=== PATIENT | female | born 1975 | race Caucasian/White ===

== ENCOUNTER 2017-04-10 13:44 | Emergency (ER) | payer MEDICAID ==
[~2017-04-10] VITALS: Ht 152.4 cm; Wt 112.5 kg
[2017-04-10 13:58] VITALS: Ht 152.4 cm; Wt 112.5 kg
--- NOTE | 2017-04-10 15:48 | ERD ---
ER Documentation Chief Complaint Date/Time DATE: 04/10/17 TIME: 15:47 Chief Complaint 4 weeks , vag bleed today denies pain HPI This 41-year-old female presents to the emergency department today complaining of vaginal bleeding. States that she went to the bathroom this morning when she went to wipe there was dark color clot. States she is approximately 4 weeks . States she goes to her eyes and her health care center. States that she had an ultrasound last Monday and told it was told everything was normal. Denies any abdominal pain, fevers or chills, nausea vomiting or diarrhea ROS All systems reviewed and are negative except as per history of present illness. Medications Home Meds Active Scripts Acetaminophen* (Tylophen*) 500 Mg Capsule, 1 CAP PO Q6H Y for PAIN AND OR ELEVATED TEMP, #30 CAP Prov:GAL FREEMAN PA-C 04/10/17 Allergies Allergies: Coded Allergies: No Known Allergy (Unverified , 04/10/17) PMhx/Soc Hx Alcohol Use: No Hx Substance Use: No Hx Tobacco Use: No Physical Exam Vitals Vital Signs Date Time Temp Pulse Resp B/P Pulse Ox O2 Delivery O2 Flow Rate FiO2 04/10/17 18:22 60 16 117/65 99 Room Air 04/10/17 13:58 98.7 68 20 121/65 98 Physical Exam Const: Obese, no acute distress Head: Atraumatic Eyes: Normal Conjunctiva ENT: Normal External Ears, Nose and Mouth. Neck: Full range of motion..~ No meningismus. Resp: Clear to auscultation bilaterally Cardio: Regular rate and rhythm, no murmurs Abd: Soft, non tender, non distended. Normal bowel sounds Skin: No petechiae or rashes Back: No midline or flank tenderness Ext: No cyanosis, or edema Neur: Awake and alert Psych: Normal Mood and Affect Result Diagram: 04/10/17 1605 Results 24 hrs Laboratory Tests Test 04/10/17 16:05 04/10/17 16:35 White Blood Count 8.110^3/ul Red Blood Count 4.5210^6/ul Hemoglobin 13.1g/dl Hematocrit 39.1% Mean Corpuscular Volume 86.5fl Mean Corpuscular Hemoglobin 29.0pg Mean Corpuscular Hemoglobin Concent 33.5g/dl Red Cell Distribution Width 13.0% Platelet Count 80418^3/UL Mean Platelet Volume 10.5fl Neutrophils % 73.7% Lymphocytes % 19.1% Monocytes % 5.9% Eosinophils % 0.5% Basophils % 0.4% Nucleated Red Blood Cells % 0.0/100WBC Neutrophils # 6.010^3/ul Lymphocytes # 1.510^3/ul Monocytes # 0.510^3/ul Eosinophils # 0.010^3/ul Basophils # 0.010^3/ul Nucleated Red Blood Cells # 0.010^3/ul Beta HCG, Quantitative 20306.0mIU/ml Urine Color STRAW Urine Clarity CLEAR Urine pH 7.0 Urine Specific [place] 1.004 Urine Ketones NEGATIVEmg/dL Urine Nitrite NEGATIVEmg/dL Urine Bilirubin NEGATIVEmg/dL Urine Urobilinogen NEGATIVEmg/dL Urine Leukocyte Esterase NEGATIVELeu/ul Urine Microscopic RBC 0/HPF Urine Microscopic WBC 1/HPF Urine Bacteria FEW/HPF Urine Hemoglobin 1+mg/dL Urine Glucose NEGATIVEmg/dL Urine Total Protein NEGATIVEmg/dl DIAGNOSTIC IMAGING REPORT Patient: TOMASZ ROMERO : 1975 Age: 41 Sex: F MR #: [id number] DOS: 04/10/17 1546 Ordering MD: GAL FREEMAN PA-C Location: [facility] Room/Bed: PROCEDURE: OBSTETRICAL ULTRASOUND WITH ENDOVAGINAL IMAGES CLINICAL INDICATION: Vaginal Bleed () TECHNIQUE: Multiple sonographic images of the pelvis were obtained utilizing a transabdominal and endovaginal technique. The images were reviewed on a PACS workstation. COMPARISON: None. FINDINGS: A possible intrauterine gestational sac is identified with mean sac diameter of 1.63 cm which would be consistent with a gestational age of 6 weeks, 3 days and an estimated date of delivery of 12/01/2017 . No yolk sac or pole is identified within it. There is a hypoechoic and hypovascular lesion adjacent to the gestational sac measuring 1.4 x 0.9 x 1.5 cm consistent with a subchorionic hemorrhage. The right ovary measures 1.9 x 1.3 x 1.3 cm. The left ovary is not visualized. There is normal vascular flow in the right ovary. No significant ovarian lesions are seen. There is trace pelvic free fluid. IMPRESSION: A possible intrauterine gestational sac is identified which would be consistent with a gestational age of 6 weeks, 3 days . No yolk sac or pole is identified within it. Findings may be due to an early intrauterine although an ectopic is not excluded. Short-term follow-up ultrasound and serial Beta HCG measurements are recommended for further evaluation. 1.5 cm subchorionic hemorrhage. Nonvisualization of the left ovary. RPTAT: EE Freddie Redmond Physician Date Time Electronically viewed and signed by Freddie Redmond Physician on 04/10/2017 16:28 RA/ CC: GAL FREEMAN PA-C Procedures/MDM This is a A1 41-year-old female who presents to the emergency department today complaining of vaginal bleeding. Patient states she is approximately 4 weeks. Given this I did obtain a complete OB workup. Laboratory work shows no elevated white blood cell count. She is not anemic. Platelets are within normal limits. UA is negative for infection Beta quant hCG 21297.0 Rh status O+ Ultrasound shows a possible intrauterine gestational sac identified which would be consistent with a gestational age of 6 weeks and 3 days. There is no yolk sac or pole identified within it. Findings may be due to an early intrauterine although an ectopic is not excluded. There is a 1.5 cm subchorionic hemorrhage. There is trace pelvic free fluid. There is normal vascular flow in the right ovary. Patient symptoms at this time is consistent with vaginal bleeding in early . This may be due to subchorionic hemorrhage. Other differentials to consider early normal versus early failed Patient denies any abdominal pain. She will be given a prescription for Tylenol for home. Patient is afebrile and otherwise well-appearing. I have low suspicion for ectopic , tubo ovarian abscess, ovarian torsion. I have explained the results to the patient. I have explained to the patient that they need to follow-up in 48 hours for a repeat beta quant as I cannot exclude ectopic at this time. Patient understood At this time the patient is stable for discharge and outpatient management. Patient should follow up with their PCP in the next 1-2 days. They may return to the emergency department sooner for any persistent or worsening of symptoms. Patient understood and agreed with the plan. Departure Diagnosis: Primary Impression: Vaginal bleeding in patient at less than 20 weeks gestation Condition: GAL Kaur PA-C Apr 10, 2017 15:48
[2017-04-10 16:16] LABS: BASOPHILS % 0.4 % (0.0-2.0); EOSINOPHILS % 0.5 % (0.0-7.0); HEMATOCRIT 39.1 % (37.0-47.0); HEMOGLOBIN 13.1 g/dl (12.0-16.0); LYMPHOCYTES # 1.5 10^3/ul (0.8-2.9); LYMPHOCYTES % 19.1 % (15.0-51.0); MEAN CORPUSCULAR HGB CONC 33.5 g/dl (32.0-37.0); MEAN CORPUSCULAR VOLUME 86.5 fl (82.0-101.0); MEAN PLATELET VOLUME 10.5 fl (7.4-10.4); MONOCYTE # 0.5 10^3/ul (0.3-0.9); MONOCYTES % 5.9 % (0.0-11.0); NEUTROPHILS % 73.7 % (39.0-77.0); PLATELET COUNT 254 10^3/UL (140-415); RED BLOOD COUNT 4.52 10^6/ul (4.20-5.40); WHITE BLOOD COUNT 8.1 10^3/ul (4.8-10.8)
--- NOTE | 2017-04-10 16:28 | RADRPT ---
PROCEDURE: OBSTETRICAL ULTRASOUND WITH ENDOVAGINAL IMAGES CLINICAL INDICATION: Vaginal Bleed () TECHNIQUE: Multiple sonographic images of the pelvis were obtained utilizing a transabdominal and endovaginal technique. The images were reviewed on a PACS workstation. COMPARISON: None. FINDINGS: A possible intrauterine gestational sac is identified with mean sac diameter of 1.63 cm which would be consistent with a gestational age of 6 weeks, 3 days and an estimated date of delivery of 018 . No yolk sac or pole is identified within it. There is a hypoechoic and hypovascular lesion adjacent to the gestational sac measuring 1.4 x 0.9 x 1.5 cm consistent with a subchorionic hemorrhage. The right ovary measures 1.9 x 1.3 x 1.3 cm. The left ovary is not visualized. There is normal vascu lar flow in the right ovary. No significant ovarian lesions are seen. There is trace pelvic free fluid. IMPRESSION: A possible intrauterine gestational sac is identified which would be consistent with a gestational a ge of 6 weeks, 3 days . No yolk sac or pole is identified within it. Findings may be due to a n early intrauterine although an ectopic is not excluded. Short-term follow-up ultrasound and serial Beta HCG measurements are recommended for further evaluation. 1.5 cm subchorionic hemorrhage. Nonvisualization of the left ovary. RPTAT: EE Physician Ana Lilia Date Time Electronically viewed and signed by Physician Ana Lilia on 04/10/2017 16:28 [id number]
[2017-04-10 17:14] LABS: ADD UMIC YES; UR ASCORBIC ACID NEGATIVE (NEGATIVE); UR BACTERIA FEW /HPF (NONE SEEN); UR BILIRUBIN (Dip) NEGATIVE (NEGATIVE); UR BLOOD (Dip) 1+ mg/dL (NEGATIVE); UR CLARITY CLEAR (CLEAR); UR COLOR STRAW (YELLOW); UR GLUCOSE (Dip) NEGATIVE (NEGATIVE); UR KETONES (Dip) NEGATIVE (NEGATIVE); UR LEUKOCYTE ESTERASE (Dip) NEGATIVE Leu/ul (NEGATIVE); UR NITRITE (Dip) NEGATIVE (NEGATIVE); UR RBC 0 /HPF (0-5); UR SPECIFIC GRAVITY (Dip) 1.004 (1.003-1.030); UR TOTAL PROTEIN (Dip) NEGATIVE (NEGATIVE); UR UROBILINOGEN (Dip) NEGATIVE (NEGATIVE)
[2017-04-10] MEDS ORDERED: ACET500C5 PO (18:03)
[2017-04-10 18:22] VITALS: BP 117/65; PULSE 60; RESP 16
== END 2017-04-10 18:23 | disposition home or self-care (01) ==
LOC: FTE 13:44
DX: O20.9 Hemorrhage in early pregnancy, unspecified (principal); Z3A.01 Less than 8 weeks gestation of pregnancy
CPT/HCPCS: 76801; 76817; 81001; 84702; 85025; 86900; 86901

== ENCOUNTER 2017-11-18 00:42 | Inpatient (IN) | END 2017-11-21 18:40 | disposition home or self-care (01) | DRG 766 ==